=== PATIENT | female | born 1940 | race Caucasian/White ===

== ENCOUNTER 2020-08-06 12:23 | Emergency (ER) | payer MEDICARE, OTHER ==
[2020-08-06 14:59] LABS: HEMOGLOBIN 15.1 gm/dl (12.3-15.3); RED BLOOD COUNT 5.15 M/UL (4.00-5.10); WHITE BLOOD COUNT 3.6 K/UL (4.5-11.0)
== END 2020-08-06 16:08 | disposition home or self-care (01) ==
LOC: ER1 12:23
PROVIDERS: Emergency Medicine
DX: U07.1 COVID-19 (principal); I44.7 Left bundle-branch block, unspecified
CPT/HCPCS: 71045; 80053; 85025; 93005; 99285; M0239; U0002

== ENCOUNTER 2022-04-28 14:04 | Inpatient (IN) | payer MEDICARE, OTHER ==
[~2022-04-28] VITALS: Ht 165.1 cm; Wt 100.0 kg
[2022-04-28 15:19] LABS: HEMOGLOBIN 14.7 gm/dl (12.3-15.3); RED BLOOD COUNT 4.88 M/UL (4.00-5.10); WHITE BLOOD COUNT 5.9 K/UL (4.5-11.0)
[2022-04-29 05:19] LABS: HEMOGLOBIN 14.2 gm/dl (12.3-15.3); RED BLOOD COUNT 4.77 M/UL (4.00-5.10); WHITE BLOOD COUNT 6.2 K/UL (4.5-11.0)
[2022-04-29] MEDS ORDERED: CELECOXIB100 MG PO (11:55)
[2022-04-29] MEDS ORDERED: LEVOTHYROXINE88 MCG PO (11:55)
[2022-04-29] MEDS ORDERED: CRESTOR20 MG PO (11:56)
[2022-04-30] MEDS ORDERED: LOPRESSOR 50 MG50 MG PO (10:05)
[2022-04-30] MEDS ORDERED: NITROSTAT 0.40.4 MG SL (10:05)
[2022-04-30] MEDS ORDERED: augmentin PO (10:05)
[2022-04-30] MEDS ORDERED: PROBIOTIC1 EAC1 PO (10:05)
[2022-04-30] MEDS ORDERED: ELIQUIS 5 MG TAB5 MG PO (10:05)
[2022-05-01] MEDS ORDERED: DIGOXIN125 MCG PO (10:24)
--- NOTE | 2022-05-01 13:19 | NUR ---
PATIENT GIVEN [employer] COUPON CARD.
== END 2022-05-01 13:13 | disposition home or self-care (01) | DRG 308 ==
LOC: ER1 14:04 → CDU 18:54 → PROG CARE 18:54
PROVIDERS: Physician Assistant; ADMIT Family Medicine
DX: I48.91 Unspecified atrial fibrillation (principal); J18.9 Pneumonia, unspecified organism; E03.9 Hypothyroidism, unspecified; E78.5 Hyperlipidemia, unspecified; M19.90 Unspecified osteoarthritis, unspecified site; J30.9 Allergic rhinitis, unspecified; I44.7 Left bundle-branch block, unspecified; I11.0 Hypertensive heart disease with heart failure; I50.9 Heart failure, unspecified; Z20.822 Contact with and (suspected) exposure to COVID-19; Z98.51 Tubal ligation status
CPT/HCPCS: ECHO; 36415; 71045; 71046; 80048; 80053; 81001; 82550; 82553; 83605; 83735; 83880; 84439; 84443; 84484; 85025; 85610; 85730; 87040; 93005; 93306; 94640; 94664; 94760; 96374; 96375; 99285; G0378; J0456; J0696; J1160; J1940; J7030; U0002